=== PATIENT | female | born 1980 | race Caucasian/White ===

== ENCOUNTER 2016-10-04 07:48 | Inpatient (IN) | payer OTHER ==
[2016-10-04] VITALS (35 sets, daily range): BP systolic 97–149; BP diastolic 45–81; PULSE 93–146; TEMP 98.4–99
[~2016-10-04] VITALS: Ht 170.2 cm; Wt 118.6 kg
[~2016-10-04 07:48] MED LIST: CEFTIN 250250 MG/TAB PO; PYRIDIUM200 M1 PO
[2016-10-04] MEDS ORDERED: ZANTAC 150MG T150 MG PO (08:39)
[2016-10-04] MEDS ORDERED: PRENATAL MVI (08:39)
[2016-10-04 08:48] LABS: BASO % 0.2 % (0.0-2.0); EOS # 0.1 (0.0-0.7); EOS % 0.7 % (0-4.0); GRAN # 10.3 (1.4-6.5); GRAN % 83.3 % (42.2-75.2); HEMOGLOBIN 12.3 g/dl (12.5-16.0); LYMPH # 1.3 (1.2-3.4); LYMPH % 10.9 % (20.0-51.0); MEAN CELL VOLUME 84 fl (80.0-100.0); MEAN CORPUSCULAR HEMOGLOBIN 28 pg (27.0-31.0); MEAN CORPUSCULAR HGB CONC 34 g/dl (33.0-37.0); MEAN PLATELET VOLUME 10.3 fl (7.4-10.4); MONO # 0.6 (0.1-0.6); MONO % 4.5 % (1.7-9.3); PLATELET COUNT 139 K/mm3 (130-400); RED BLOOD COUNT 4.36 M/mm3 (4.10-5.30); REDCELL DISTRIBUTION WIDTH-CV 14.1 % (11.5-14.5); WHITE BLOOD COUNT 12.4 K/mm3 (4.8-10.8)
[2016-10-04 08:51] LABS: HEMATOCRIT 36.7 % (37.0-47.0)
[2016-10-05] VITALS (7 sets, daily range): BP systolic 108–128; BP diastolic 55–70; PULSE 78–121; TEMP 97.5–102.4
[2016-10-05 07:09] LABS: MEAN CELL VOLUME 86 fl (80.0-100.0); MEAN CORPUSCULAR HGB CONC 33 g/dl (33.0-37.0); MEAN PLATELET VOLUME 10.8 fl (7.4-10.4); PLATELET COUNT 119 K/mm3 (130-400); RED BLOOD COUNT 3.58 M/mm3 (4.10-5.30); REDCELL DISTRIBUTION WIDTH-CV 14.4 % (11.5-14.5); WHITE BLOOD COUNT 14.1 K/mm3 (4.8-10.8)
[2016-10-05 07:14] LABS: HEMATOCRIT 30.8 % (37.0-47.0); HEMOGLOBIN 10.2 g/dl (12.5-16.0); MEAN CORPUSCULAR HEMOGLOBIN 28 pg (27.0-31.0)
[2016-10-05 07:15] LABS: ADD PATHOLOGY DIFF REVIEW NO
[2016-10-05 08:29] LABS: BAND 38 % (0-10); NEUTROPHILS 53 % (42.0-75.2); TOTAL CELLS COUNTED 100
[2016-10-05 08:30] LABS: ANISOCYTOSIS 1+; POLYCHROMASIA 1+
[2016-10-05 22:51] LABS: BASO % 0.2 % (0.0-2.0); EOS % 0.1 % (0-4.0); GRAN # 8.9 (1.4-6.5); GRAN % 91.8 % (42.2-75.2); LYMPH # 0.4 (1.2-3.4); LYMPH % 4.1 % (20.0-51.0); MEAN CELL VOLUME 85 fl (80.0-100.0); MEAN CORPUSCULAR HGB CONC 33 g/dl (33.0-37.0); MEAN PLATELET VOLUME 10.2 fl (7.4-10.4); MONO # 0.3 (0.1-0.6); PLATELET COUNT 111 K/mm3 (130-400); RED BLOOD COUNT 3.53 M/mm3 (4.10-5.30); REDCELL DISTRIBUTION WIDTH-CV 14.6 % (11.5-14.5); WHITE BLOOD COUNT 9.7 K/mm3 (4.8-10.8)
[2016-10-05 22:52] LABS: HEMATOCRIT 30.1 % (37.0-47.0); MEAN CORPUSCULAR HEMOGLOBIN 28 pg (27.0-31.0)
[2016-10-06] VITALS (10 sets, daily range): BP systolic 102–126; BP diastolic 49–75; PULSE 96–122; TEMP 98.2–102.3
[2016-10-06 00:04] LABS: PH 5 (5-8); SQUAMOUS EPITHELIAL 0-2 /hpf; URINE APPEARANCE Clear; URINE BACTERIA None Seen /hpf; URINE BILIRUBIN Negative (NEGATIVE); URINE BLOOD 1+ (NEGATIVE); URINE COLOR Yellow; URINE GLUCOSE Negative (NEGATIVE); URINE KETONE Negative (NEGATIVE); URINE UROBILINOGEN Negative (NEGATIVE)
[2016-10-06] MEDS ORDERED: IBU800 M1 PO (11:01)
[2016-10-06] MEDS ORDERED: PERCOCET 325 MG1 TA2 PO (11:01)
[2016-10-07] VITALS (7 sets, daily range): BP systolic 107–129; BP diastolic 59–74; PULSE 94–112; TEMP 98–100.4
[2016-10-07 08:56] LABS: MEAN CELL VOLUME 85 fl (80.0-100.0); MEAN CORPUSCULAR HGB CONC 34 g/dl (33.0-37.0); MEAN PLATELET VOLUME 10.3 fl (7.4-10.4); PLATELET COUNT 128 K/mm3 (130-400); RED BLOOD COUNT 3.28 M/mm3 (4.10-5.30); REDCELL DISTRIBUTION WIDTH-CV 14.6 % (11.5-14.5); WHITE BLOOD COUNT 7.1 K/mm3 (4.8-10.8)
[2016-10-07 08:58] LABS: ADD PATHOLOGY DIFF REVIEW NO; HEMATOCRIT 27.7 % (37.0-47.0); HEMOGLOBIN 9.3 g/dl (12.5-16.0); MEAN CORPUSCULAR HEMOGLOBIN 28 pg (27.0-31.0)
[2016-10-07 09:29] LABS: BAND 54 % (0-10); EOSINOPHIL 2 % (0-4); MYELOCYTE 1 % (0-0); NEUTROPHILS 33 % (42.0-75.2); PLATELET ESTIMATE NORMAL (NORMAL); TOTAL CELLS COUNTED 100
[2016-10-08 04:00] VITALS: BP 118/61; BP 119/69; PULSE 88; PULSE 99; TEMP 97.8; TEMP 98.4
[2016-10-08 07:21] LABS: MEAN CELL VOLUME 85 fl (80.0-100.0); MEAN CORPUSCULAR HGB CONC 33 g/dl (33.0-37.0); PLATELET COUNT 161 K/mm3 (130-400); REDCELL DISTRIBUTION WIDTH-CV 14.5 % (11.5-14.5); WHITE BLOOD COUNT 6.6 K/mm3 (4.8-10.8)
[2016-10-08 07:24] LABS: HEMATOCRIT 30.5 % (37.0-47.0); HEMOGLOBIN 10.1 g/dl (12.5-16.0); MEAN CORPUSCULAR HEMOGLOBIN 28 pg (27.0-31.0)
[2016-10-08 08:00] VITALS: BP 122/68; PULSE 91; TEMP 97.7
[2016-10-08 12:00] VITALS: BP 112/73; PULSE 110; TEMP 98.8
[2016-10-08 18:00] VITALS: BP 130/75; PULSE 91; TEMP 98.2
[2016-10-08 20:30] VITALS: BP 137/79; PULSE 99; TEMP 98.3
[2016-10-09] VITALS (9 sets, daily range): BP systolic 120–134; BP diastolic 65–73; PULSE 88–103; TEMP 98.3–99.5
[2016-10-10 05:00] VITALS: BP 118/65; PULSE 88; TEMP 98.2
[2016-10-10 08:12] LABS: MEAN CELL VOLUME 85 fl (80.0-100.0); MEAN CORPUSCULAR HGB CONC 32 g/dl (33.0-37.0); MEAN PLATELET VOLUME 9.8 fl (7.4-10.4); PLATELET COUNT 192 K/mm3 (130-400); RED BLOOD COUNT 3.49 M/mm3 (4.10-5.30); REDCELL DISTRIBUTION WIDTH-CV 14.4 % (11.5-14.5); WHITE BLOOD COUNT 8.1 K/mm3 (4.8-10.8)
[2016-10-10 08:16] LABS: HEMATOCRIT 29.8 % (37.0-47.0); HEMOGLOBIN 9.6 g/dl (12.5-16.0); MEAN CORPUSCULAR HEMOGLOBIN 28 pg (27.0-31.0)
[2016-10-10 08:18] LABS: ADD PATHOLOGY DIFF REVIEW NO
[2016-10-10] MEDS ORDERED: CEPHALEXIN500 M1 PO (08:56)
[2016-10-10] MEDS ORDERED: LOVENOX120 MG/0.8 SQ (08:56)
[2016-10-10] MEDS ORDERED: SENOKOT S 50 MG1 TAB PO (08:56)
[2016-10-10 09:31] LABS: BAND 30 % (0-10); EOSINOPHIL 1 % (0-4); METAMYELOCYTE 3 % (0-0); NEUTROPHILS 47 % (42.0-75.2); TOTAL CELLS COUNTED 100
[2016-10-10 09:32] LABS: PLATELET ESTIMATE NORMAL (NORMAL)
[2016-10-10 10:07] VITALS: BP 136/70; PULSE 103; TEMP 98.4
== END 2016-10-10 12:30 | disposition home or self-care (01) | DRG 765 ==
LOC: LDRO 07:48 → LDR 10:42 → OB 10:42 → LDRO 10-08 09:32 → OB 10-10 12:30
PROVIDERS: Obstetrics & Gynecology; Student in an Organized Health Care Education/Training Program
PROC: 10D00Z1 Extraction of Products of Conception, Low, Open Approach (ICD-10-PCS; principal; 2016-10-04)
DX: O34.211 Maternal care for low transverse scar from previous cesarean delivery (principal); D62 Acute posthemorrhagic anemia; O86.4 Pyrexia of unknown origin following delivery; O99.013 Anemia complicating pregnancy, third trimester; N85.8 Other specified noninflammatory disorders of uterus; Z3A.39 39 weeks gestation of pregnancy; Z37.0 Single live birth
CPT/HCPCS: J0290; J0690; J1580; J1885; J2175; J2270; J2370; J2405; J2590; J7120

== ENCOUNTER → 2016-10-12 | Outpatient (CLI) | payer OTHER ==
[~2016-10-12] MED LIST changes: +BACTRIM DS 8001 TAB PO; +CEPHALEXIN500 M1 PO; +IBU800 M1 PO; +LOVENOX120 MG/0.8 SQ; +METHERGINE0.2 MG/TAB; +PERCOCET 325 MG1 TA2 PO; +PRENATAL MVI; +SENOKOT S 50 MG1 TAB PO; +ZANTAC 150MG T150 MG PO
== END ==
LOC: COL.RAD 14:24
DX: R50.82 Postprocedural fever (principal); R18.8 Other ascites; D73.1 Hypersplenism; R59.1 Generalized enlarged lymph nodes

== ENCOUNTER 2016-10-18 10:28 | Observation (INO) | payer OTHER ==
[~2016-10-18] VITALS: Ht 167.6 cm; Wt 243.0 kg
[~2016-10-18 10:28] MED LIST changes: -BACTRIM DS 8001 TAB PO; -METHERGINE0.2 MG/TAB
[2016-10-18] MEDS ORDERED: BACTRIM DS 8001 TAB PO ×2 (10:40→11:34)
[2016-10-18] MEDS ORDERED: METHERGINE0.2 MG/TAB (11:07)
[2016-10-18 11:34] LABS: BASO % 0.3 % (0.0-2.0); GRAN # 6.6 (1.4-6.5); GRAN % 86.3 % (42.2-75.2); LYMPH # 0.6 (1.2-3.4); LYMPH % 7.7 % (20.0-51.0); MEAN CELL VOLUME 87 fl (80.0-100.0); MEAN CORPUSCULAR HGB CONC 32 g/dl (33.0-37.0); MEAN PLATELET VOLUME 9.6 fl (7.4-10.4); MONO # 0.4 (0.1-0.6); MONO % 4.7 % (1.7-9.3); PLATELET COUNT 250 K/mm3 (130-400); RED BLOOD COUNT 3.78 M/mm3 (4.10-5.30); REDCELL DISTRIBUTION WIDTH-CV 14.7 % (11.5-14.5); WHITE BLOOD COUNT 7.7 K/mm3 (4.8-10.8)
[2016-10-18 11:35] LABS: HEMATOCRIT 32.7 % (37.0-47.0); HEMOGLOBIN 10.3 g/dl (12.5-16.0); MEAN CORPUSCULAR HEMOGLOBIN 27 pg (27.0-31.0)
[2016-10-18 11:48] LABS: ADJUSTED CALCIUM 9.1 mg/dL (8.4-10.2); ALBUMIN 3.9 gm/dL (3.5-5.0); BILIRUBIN,TOTAL 0.8 mg/dL (0.0-1.0); CREATININE, serum 0.76 mg/dL (0.52-1.25); TOTAL PROTEIN 7.7 gm/dL (6.4-8.2)
[2016-10-18 12:01] LABS: PH 5 (5-8); SQUAMOUS EPITHELIAL 0-2 /hpf; URINE APPEARANCE Hazy; URINE BACTERIA None Seen /hpf; URINE BILIRUBIN Negative (NEGATIVE); URINE BLOOD Negative (NEGATIVE); URINE COLOR Amber; URINE GLUCOSE Negative (NEGATIVE); URINE KETONE Negative (NEGATIVE); URINE UROBILINOGEN Negative (NEGATIVE)
[2016-10-18 14:05] VITALS: BP 114/71; PULSE 95; TEMP 98.5
[2016-10-18 14:28] VITALS: BP 114/71; PULSE 95; TEMP 98.5
[2016-10-18 16:55] VITALS: BP 130/75; PULSE 101; TEMP 99.2
[2016-10-18 16:55] LABS: INR 1.2 (0.8-3.0); PROTHROMBIN TIME 13.9 SECONDS (9.7-12.8)
[2016-10-18 16:57] LABS: PARTIAL THROMBOPLASTIN TIME 35.1 SECONDS (26.0-37.0)
[2016-10-18 20:00] VITALS: BP 126/61; PULSE 123; TEMP 100.5
[2016-10-19] VITALS (18 sets, daily range): BP systolic 92–125; BP diastolic 41–79; PULSE 79–103; TEMP 98.2–99.9
[2016-10-19 08:16] LABS: MEAN CELL VOLUME 87 fl (80.0-100.0); MEAN CORPUSCULAR HGB CONC 31 g/dl (33.0-37.0); MEAN PLATELET VOLUME 9.6 fl (7.4-10.4); PLATELET COUNT 229 K/mm3 (130-400); RED BLOOD COUNT 3.64 M/mm3 (4.10-5.30); REDCELL DISTRIBUTION WIDTH-CV 14.8 % (11.5-14.5); WHITE BLOOD COUNT 4.2 K/mm3 (4.8-10.8)
[2016-10-19 08:18] LABS: HEMATOCRIT 31.8 % (37.0-47.0); MEAN CORPUSCULAR HEMOGLOBIN 27 pg (27.0-31.0)
[2016-10-19 08:19] LABS: ADD PATHOLOGY DIFF REVIEW NO; TOTAL CELLS COUNTED 0
[2016-10-19 08:20] LABS: ADJUSTED CALCIUM 9.2 mg/dL (8.4-10.2); ALBUMIN 3.5 gm/dL (3.5-5.0); BILIRUBIN,TOTAL 0.6 mg/dL (0.0-1.0); CALCIUM 8.8 mg/dL (8.4-10.2); CREATININE, serum 0.66 mg/dL (0.52-1.25); POTASSIUM 4.1 mmol/L (3.4-5.0); TOTAL PROTEIN 7.1 gm/dL (6.4-8.2)
[2016-10-20 02:00] VITALS: TEMP 98.3
[2016-10-20 08:29] VITALS: BP 112/76; PULSE 86; TEMP 98
[2016-10-20 09:25] LABS: BASO % 0.4 % (0.0-2.0); EOS # 0.1 (0.0-0.7); EOS % 3.1 % (0-4.0); GRAN # 2.6 (1.4-6.5); GRAN % 57.9 % (42.2-75.2); LYMPH # 1.4 (1.2-3.4); LYMPH % 30.8 % (20.0-51.0); MEAN CELL VOLUME 88 fl (80.0-100.0); MEAN CORPUSCULAR HGB CONC 31 g/dl (33.0-37.0); MEAN PLATELET VOLUME 9.5 fl (7.4-10.4); MONO # 0.3 (0.1-0.6); MONO % 6.9 % (1.7-9.3); PLATELET COUNT 265 K/mm3 (130-400); RED BLOOD COUNT 3.57 M/mm3 (4.10-5.30); REDCELL DISTRIBUTION WIDTH-CV 14.7 % (11.5-14.5); WHITE BLOOD COUNT 4.5 K/mm3 (4.8-10.8)
[2016-10-20 09:26] LABS: HEMATOCRIT 31.5 % (37.0-47.0); HEMOGLOBIN 9.7 g/dl (12.5-16.0); MEAN CORPUSCULAR HEMOGLOBIN 27 pg (27.0-31.0)
[2016-10-20 09:29] LABS: PROTHROMBIN TIME 11.6 SECONDS (9.7-12.8)
== END 2016-10-20 10:49 | disposition home or self-care (01) ==
LOC: COL.ER 10:28 → OB 13:18
PROVIDERS: Emergency Medicine; Obstetrics & Gynecology
DX: L76.34 Postprocedural seroma of skin and subcutaneous tissue following other procedure (principal); E66.9 Obesity, unspecified; Z86.72 Personal history of thrombophlebitis
CPT/HCPCS: G0378; J2250; J2543; J3010; J7030; J7050; Q9967